=== PATIENT | female | born 1965 | race Caucasian/White ===

== ENCOUNTER → 2017-11-30 | Outpatient (CLI) | payer OTHER ==
[~2017-11-30] MED LIST: CALCIUM 600 +1 EAC1 PO; CENTRUM SILVER1 EAC2 PO; COREG6.25 MG PO; FLEXERIL PO; HARD NAILS2500 MCG PO; IBUPROFEN 800800 MG PO; NORCO 7.5-3251 EACH PO; PREDNISONE 10 M10 MG PO; ROBAXIN 750 MG750 MG PO; TURMERIC500 M1 PO; VITAMINC500 PO
[2017-11-30 10:05] LABS: ABSOLUTE BASOPHILS 0.1 thou/uL (0.0-0.2); ABSOLUTE EOSINOPHILS 0.1 thou/uL (0.0-0.7); ABSOLUTE LYMPHOCYTES 1.2 thou/uL (0.8-5.3); ABSOLUTE MONOCYTES 0.5 thou/uL (0.0-1.2); ABSOLUTE NEUTROPHILS 2.3 thou/uL (1.6-8.1); BASOPHILS 1.2 %; EOSINOPHILS 3.3 %; HEMATOCRIT 43.6 % (37.0-47.0); HEMOGLOBIN 15.2 gm/dL (12.0-15.0); LYMPHOCYTES 29.5 %; MCH 32.9 pg (26.0-34.0); MCHC 34.8 g/dL (28.0-37.0); MCV 94.6 fL (80.0-100.0); MONOCYTES 10.9 %; MPV 7.2 fl. (7.2-11.1); NUCLEATED RBCS 0 /100WBC; PLATELET COUNT* 210 thou/uL (150-400); POLYS 55.1 %; WBC 4.2 thou/uL (4.0-11.0)
[2017-11-30 10:17] LABS: ALBUMIN 3.9 g/dL (3.4-5.0); CALCIUM 9.6 mg/dL (8.5-10.1); POTASSIUM 4.4 mmol/L (3.5-5.1); TOTAL BILIRUBIN 0.4 mg/dL (<0.1-1.0); TOTAL PROTEIN 7.3 g/dL (6.4-8.2)
== END ==
LOC: M.LAB 11-22 10:00 → M.RAD 11-22 10:40 → M.LAB 09:40
PROVIDERS: Radiology Radiation Oncology
DX: J98.4 Other disorders of lung (principal); Z85.3 Personal history of malignant neoplasm of breast; Z98.890 Other specified postprocedural states

== ENCOUNTER → 2017-12-07 | Outpatient (CLI) | payer OTHER ==
--- NOTE | 2017-12-19 10:34 | ONC ---
[address] [address] RADIATION ONCOLOGY NOTE Name: QIELVIS Isidoro Room: [facility]#: [id number] Admission: 12/07/17 Attend Phys: Basil Shepard MD Discharge: Date of : 61 Report #: [id number] THIS REPORT FOR: //name// CC: Basil Villagran DO DATE OF SERVICE: 12/07/2017 RADIATION ONCOLOGY FOLLOWUP NOTE REFERRING PHYSICIANS: Include Jaime Barton DO; Cleveland Masters MD as well as Ady Mir DO [facility] phone is [phone]. PRIMARY SITE AND HISTOPATHOLOGY: The patient underwent radiation therapy as part of breast conservation therapy for a stage IIB, T2N1M0 left breast cancer. She completed radiation therapy as part of breast conservation therapy on 01/12/2017. INTERVAL NOTE: The patient denied having any discharge from the right nipple. She denied having any discharge from the left nipple. She denied having any suspicious palpable masses involving the left breast. She denied having any suspicious palpable masses involving the right breast. MEDICATIONS: She is taking no medications. SOCIAL HISTORY: Cigarettes -- the patient does not smoke cigarettes. REVIEW OF SYSTEMS: RESPIRATORY: Breathing was stable. She was not short of breath during appointment. MUSCULOSKELETAL: Range of motion in her extremities was normal. PHYSICAL EXAMINATION: With my nurse, Rosie Lozano, present: VITAL SIGNS: The patient weighed 177.2 pounds on 12/07/2017. The patient was 172 pounds 9.6 ounces on 02/19/2017. On 12/07/2017, blood pressure was 133/88, pulse 70, respirations 20. LYMPH NODES: She had no palpable cervical, supraclavicular or axillary lymphadenopathy. HEART: Had a regular rate and rhythm without murmur. LUNGS: were clear to auscultation. BREASTS: Right breast had no suspicious palpable masses. Left breast had no suspicious palpable masses. ABDOMEN: Not tender. Spleen was not palpable. Liver [place] [address] RADIATION ONCOLOGY NOTE Name: ELVIS BUSBY Room: [facility]#: [id number] Admission: 12/07/17 Attend Phys: Basil Shepard MD Discharge: Date of : 61 Report #: [id number] EXTREMITIES: Had no clubbing, cyanosis or edema. LABORATORY DATA: From 11/30/2017, sodium was 141, potassium 4.4, BUN was 18, creatinine was 1.0, SGOT was 101 and SGPT was 124. RADIOLOGIC DATA: She had a bilateral mammogram on 11/30/2017, which showed benign findings. They recommended a bilateral screening mammogram in May 2018, and she had a chest CT on 11/30/2017, which showed scarring of the left lung apex, which was less prominent, the radiology report recommended a followup CT scan in May 2018. ASSESSMENT AND PLAN: 1. History of left breast cancer - there is no evidence of breast cancer at this time. The patient continues to follow up with her medical oncologist, Dr. Masters. She has an appointment with Dr. Masters on 12/17/2017 and a requisition was written for a complete metabolic panel in April 2018 or May [address] with contrast in May 2018, and the patient was asked to schedule a followup appointment to see me after the chest CT. 2. Scar tissue in the lung that is probably secondary to radiation therapy in that area- A followup CT scan will be ordered in May 2018 as well as a complete metabolic panel. The CT scan will be ordered to confirm stability and make sure that the scan is consistent with scar tissue and the patient was asked to schedule a follow up appointment with me after the CT scan is complete. 3. Elevated liver enzymes- The patient had seen Dr. Masters on 10/05/2017 and in her note, she mentioned that the patient had a fatty liver and that she was drinking about 7 alcohol-containing drinks per week, so that is probably the reason her liver enzymes tend to be elevated. The patient was encouraged to decrease her alcohol intake to help normalize these liver enzymes. Thank you for allowing me to participate in the care of this patient. <ELECTRONICALLY SIGNED> By: Basil Shepard MD 12/19/17 1034 [id number] [id number] Shepard MD /nt
== END ==
LOC: M.RTH 11-30 10:30
DX: Z08 Encounter for follow-up examination after completed treatment for malignant neoplasm (principal); J98.4 Other disorders of lung; R94.5 Abnormal results of liver function studies; Z85.3 Personal history of malignant neoplasm of breast

== ENCOUNTER → 2018-04-26 | Outpatient (CLI) | payer OTHER | LOC: M.ULTRA 08:00 | DX: R94.5 Abnormal results of liver function studies (principal); C50.412 Malignant neoplasm of upper-outer quadrant of left female breast; Z85.3 Personal history of malignant neoplasm of breast; Z88.0 Allergy status to penicillin ==

== ENCOUNTER → 2018-05-30 | Outpatient (CLI) | payer OTHER ==
[2018-05-30 10:46] LABS: ALBUMIN 4.1 g/dL (3.4-5.0); CALCIUM 9.5 mg/dL (8.5-10.1); POTASSIUM 4.2 mmol/L (3.5-5.1); TOTAL BILIRUBIN 0.7 mg/dL (<0.1-1.0); TOTAL PROTEIN 7.8 g/dL (6.4-8.2)
== END ==
LOC: M.CT 09:51 → M.LAB 10:00 → M.CT 11:00
PROVIDERS: Radiology Radiation Oncology
DX: C50.912 Malignant neoplasm of unspecified site of left female breast (principal); J98.4 Other disorders of lung

== ENCOUNTER → 2018-05-31 | Outpatient (CLI) | payer OTHER ==
--- NOTE | 2018-06-09 10:28 | ONC ---
[place] [address] RADIATION ONCOLOGY NOTE Name: ELVIS BUSBY Room: [facility]#: [id number] Admission: 05/31/18 Attend Phys: Basil Shepard MD Discharge: Date of : 61 Report #: [id number] THIS REPORT FOR: //name// CC: Basil Mir DATE OF SERVICE: 05/31/2018 [facility] phone: [phone] REFERRING PHYSICIANS: Dr. Barton, Cleveland Masters MD and Ady Mir DO. PRIMARY SITE AND HISTOPATHOLOGY: The patient completed radiation therapy as part of breast-conservation therapy for a stage IIB, T2N1M0, left breast cancer. She completed radiation treatments on 01/12/2017. INTERVAL NOTE: The patient denied having any discharge from the right nipple. She denied having any discharge from the left nipple. She did not have any suspicious palpable masses involving the left breast. She did not have any suspicious palpable masses involving the right breast. She indicates she saw the roll edge machine operator with regards to her elevated liver enzymes and they did an ultrasound, which did not reveal any lesions except that the patient does have a fatty liver and they encouraged her to change some supplements she was taking and they also suggested that she decrease her ethanol intake. MEDICATIONS: Carvedilol and losartan. SOCIAL HISTORY: Cigarettes: The patient does not smoke cigarettes. Ethanol: the patient did take alcohol containing drinks almost daily, which included drinks such as beer. REVIEW OF SYSTEMS: RESPIRATORY: The patient was not short of breath during her appointment. MUSCULOSKELETAL: She had good range of motion in her upper extremities. PHYSICAL EXAMINATION: With my nurse Rosie Lozano present: VITAL SIGNS: Weight was 172 pounds on 05/31/2018. She was 177.2 pounds on 12/26/2017 and on 05/31/2018, blood pressure was 133/91, pulse 63, respirations 20 and oxygen saturation was 97%. LYMPH NODES: She had no palpable cervical or supraclavicular lymphadenopathy. HEART: Had a regular rate and rhythm without murmur. LUNGS: were clear to auscultation. BREASTS: Right breast had no suspicious palpable masses. Left breast had no suspicious palpable masses. ABDOMEN: Not tender. Spleen was not palpable. Liver was at the costal margin. EXTREMITIES: Had no clubbing, [place] [address] RADIATION ONCOLOGY NOTE Name: ELVIS BUSBY Room: [facility]#: [id number] Admission: 05/31/18 Attend Phys: Basil Shepard MD Discharge: Date of : 61 Report #: [id number] LABORATORY DATA: From 05/30/2018, sodium 140, potassium 4.2, BUN 16, creatinine 1.0, AST was elevated at 126 and ALT was 159. RADIOLOGIC DATA: She had a diagnostic bilateral mammogram and unilateral ultrasound and it showed post-treatment changes probably benign findings. There appeared to be a finding on her ultrasound consistent with a cyst and they recommended a 6-month followup right breast ultrasound. She also had an ultrasound of her abdomen done on 04/26/2018 and that revealed findings consistent with fatty infiltration of the liver. Otherwise, it was unremarkable. She had a chest CT on 05/30/2018, which showed stable scarring in the left lung. ASSESSMENT AND PLAN: 1. History of left breast cancer- There is no evidence of breast cancer at this time. The patient has an appointment with her medical oncologist, Dr. Masters, on 06/18/2018 and we also ordered lab work at that time. A right breast ultrasound and a complete metabolic panel were ordered in 11/2018. She was asked to schedule a follow up appointment to see me afterwards. 2. Elevated liver enzymes- are probably due to the fatty liver and she is cutting back her alcohol intake to help try to stabilize her liver enzymes. 3. Hypertension- The patient takes losartan and that is managed by her referring physicians. Thank you for allowing me to participate in the care of this patient. <ELECTRONICALLY SIGNED> By: Basil Shepard MD 06/09/18 1028 1231 [id number] Shepard MD /nt
== END ==
LOC: M.RTH 03:38
DX: Z08 Encounter for follow-up examination after completed treatment for malignant neoplasm (principal); C50.912 Malignant neoplasm of unspecified site of left female breast; N63.21 Unspecified lump in the left breast, upper outer quadrant; N63.10 Unspecified lump in the right breast, unspecified quadrant; I10 Essential (primary) hypertension; R79.89 Other specified abnormal findings of blood chemistry; Z85.3 Personal history of malignant neoplasm of breast

== ENCOUNTER → 2018-07-19 | Outpatient (CLI) | payer OTHER | LOC: M.MRI 16:20 | DX: M54.9 Dorsalgia, unspecified (principal); M47.897 Other spondylosis, lumbosacral region ==

== ENCOUNTER → 2019-01-10 | Outpatient (CLI) | payer BC ==
--- NOTE | ~2019-01-10 | ONC ---
[address] [address] RADIATION ONCOLOGY NOTE Name: QIELVIS EMILE Room: [facility].#: [id number] Admission: 01/10/19 Attend Phys: Basil Shepard MD Discharge: Date of : 61 Report #: [id number] THIS REPORT FOR: //name// CC: Basil Barton DATE OF SERVICE: 01/10/2019 REFERRING PHYSICIANS: Include Dr. Jaime Barton. Dr. Cleveland Masters. Dr. Ady Mir. [facility] phone is [phone]. PRIMARY SITE AND HISTOPATHOLOGY: The patient completed radiation therapy as part of breast conservation therapy for stage 2b T2 N1 M0 left breast cancer. She completed radiation treatments on 01/12/2017. INTERVAL NOTE: The patient denied having any discharge from the right nipple. The patient denied having any discharge from the left nipple. The patient denied having any suspicious palpable masses involving the right breast. The patient denied having any suspicious palpable masses involving the left breast. The patient used to have elevated liver enzymes, which may have been due to ethanol intake in the past. They appear to have normalized on her recent labs in 11/2018. MEDICATIONS: Carvedilol and losartan. SOCIAL HISTORY: Cigarettes: The patient does not smoke cigarettes. 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 REVIEW OF SYSTEMS: RESPIRATORY: The patient was not short of breath during her appointment. MUSCULOSKELETAL: She had normal range of motion of her upper extremities. PHYSICAL EXAMINATION: With my nurse, Rosie Lozano, present: VITAL SIGNS: Weight was 153.2 pounds. She was 192 pounds on 05/31/2018. She is trying to lose weight and is very active at her new job and on 01/10/2019, blood pressure is 133/84, pulse 76, respirations 16, oxygen saturation was 96%. LYMPH NODES: She had no palpable cervical or supraclavicular lymphadenopathy. HEART: Had a regular rate and rhythm without murmur. LUNGS: Clear to auscultation. BREASTS: Right breast had no suspicious palpable masses. Left breast had no suspicious palpable masses. ABDOMEN: Nontender. Spleen was not palpable. Liver [place] [address] RADIATION ONCOLOGY NOTE Name: ELVIS BUSBY EMILE Room: [facility]#: [id number] Admission: 01/10/19 Attend Phys: Basil Shepard MD Discharge: Date of : 61 Report #: [id number] LABORATORY DATA: From 11/29/2018. Sodium was 139, potassium 3.9, BUN 16, creatinine 0.8. RADIOLOGIC DATA: She had a right breast ultrasound on 11/29/2018 which revealed a benign breast cyst involving the right breast and her previous bilateral mammograms 05/30/2018 which basically noted a cystic area. She also had a CA27-29 level on 07/05/2018, which is less than 12. ASSESSMENT AND PLAN: 1. History of left breast cancer. There is no evidence of breast cancer at this time. The patient has an appointment with her medical oncologist, Dr. Masters, on 03/21/2019. The patient was given a requisition for bilateral mammogram in 05/2019 or 06/2019. The patient was asked to schedule a followup appointment to see me afterwards. 2. Hypertension. The patient takes losartan and that is managed by her referring physicians. 3. History of elevated liver enzymes. The patient's liver enzymes are within normal limits on 11/29/2018 with the AST being 33, sodium 139, potassium 3.9, BUN 16, creatinine 0.8 because of decrease in ethanol intake. Thank you for allowing me to participate in the care of this patient. By: [id number] Shepard MD /kaylah
== END ==
LOC: M.RTH 12-20 11:30
DX: Z08 Encounter for follow-up examination after completed treatment for malignant neoplasm (principal); I10 Essential (primary) hypertension; Z85.3 Personal history of malignant neoplasm of breast; Z79.899 Other long term (current) drug therapy

== ENCOUNTER → 2019-07-11 | Outpatient (CLI) | payer BC | LOC: M.RAD 12:53 | DX: R92.8 Other abnormal and inconclusive findings on diagnostic imaging of breast (principal); Z85.3 Personal history of malignant neoplasm of breast ==

== ENCOUNTER → 2019-08-22 | Outpatient (CLI) | payer BC ==
--- NOTE | ~2019-08-22 | ONC ---
[address] [address] RADIATION ONCOLOGY NOTE Name: QIELVIS EMILE Room: [facility].#: [id number] Admission: 08/22/19 Attend Phys: Basil Shepard MD Discharge: Date of : 61 Report #: [id number] THIS REPORT FOR: //name// CC: Basil Barton DATE OF SERVICE: 08/22/2019 REFERRING PHYSICIANS: Dr. Jaime Barton, Dr. Cleveland Masters and Dr. Ady Mir. [facility] phone is [phone]. PRIMARY SITE AND HISTOPATHOLOGY: The patient completed radiation therapy as part of breast conservation therapy for stage [id number] left breast cancer. She completed radiation treatments on 01/12/2007. INTERVAL NOTE: The patient denied having any discharge from the right nipple. She denied having any discharge from the left nipple. She denied having any suspicious palpable masses involving the right breast. She denied having any suspicious palpable masses involving the left breast. 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 She does have an appointment with her medical oncologist, Dr. Masters, on 09/19/2019. MEDICATIONS: Include carvedilol and losartan. SOCIAL HISTORY: Cigarettes: The patient does not smoke cigarettes. Ethanol: The patient used to drink alcohol on a daily basis and she stopped doing that earlier in 2018. 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 REVIEW OF SYSTEMS: RESPIRATORY: The patient was not short of breath during her appointment. MUSCULOSKELETAL: She had normal range of motion of her upper extremities. PHYSICAL EXAMINATION: With my nurse, Rosie Lozano, present: VITAL SIGNS: The patient weighed 153 pounds on 08/22/2019, 153.2 pounds on ____. On 08/22/2019, blood pressure is 139/88, pulse 63, respirations 18, oxygen saturation 98%. LYMPH NODES: She had no palpable cervical or supraclavicular or axillary lymphadenopathy. HEART: Had a regular rate and rhythm without murmur. LUNGS: Clear to auscultation. BREASTS: Right breast had no suspicious palpable masses. Left breast had no suspicious palpable masses. ABDOMEN: Nontender. Spleen was not palpable. Liver was at the costal margin. RADIOLOGIC DATA: The patient had a bilateral mammogram on 07/11/2019, [place] [address] RADIATION ONCOLOGY NOTE Name: ELVIS BUSBY Room: [facility]#: [id number] Admission: 08/22/19 Attend Phys: Basil Shepard MD Discharge: Date of : 61 Report #: [id number] showed evidence of malignancy and routine annual mammography was recommended. ASSESSMENT AND PLAN: 1. History of left breast cancer. There is no evidence of breast cancer. The patient is scheduled to see her medical oncologist, Dr. Masters, on 09/19/2019. The patient was given a requisition for a bilateral mammogram in about 1 year and the patient was asked to schedule a followup appointment to see me after that mammogram is done. 2. Hypertension. The patient takes losartan that is managed by her referring physicians. 3. Arthritis -- the patient said she has intermittent arthritic pains in her right shoulder and her lower back around the lumbar spine. She was offered a referral to the oncology rehabilitation physician, Dr. Veronica Hargrove. The patient did not feel that it was symptomatic enough to warrant that referral. So, she declined that referral to Dr. Hargrove. Thank you for allowing me to participate in the care of this patient. By: [id number] Shepard MD /kaylah
== END ==
LOC: M.RTH 04:59
DX: Z09 Encounter for follow-up examination after completed treatment for conditions other than malignant neoplasm (principal); I10 Essential (primary) hypertension; M19.90 Unspecified osteoarthritis, unspecified site; Z85.3 Personal history of malignant neoplasm of breast

== ENCOUNTER → 2020-07-29 | Outpatient (CLI) | payer OTHER | LOC: M.RAD 13:22 | PROVIDERS: ATTEND Internal Medicine Hematology & Oncology | DX: Z12.31 Encounter for screening mammogram for malignant neoplasm of breast (principal) ==

== ENCOUNTER → 2021-08-08 | Outpatient (CLI) | payer BC | LOC: M.RAD 12:16 | PROVIDERS: ATTEND Student in an Organized Health Care Education/Training Program | DX: Z12.31 Encounter for screening mammogram for malignant neoplasm of breast (principal); N60.01 Solitary cyst of right breast ==

== ENCOUNTER → 2021-08-15 | Outpatient (CLI) | payer BC ==
--- NOTE | 2021-08-18 10:12 | PATH ---
[address] [address] PATHOLOGY RPT PROCEDURE Name: BRITT URIBE Room: [facility].[place].#: [id number] Admission: 08/15/21 Date of : 61 Discharge: Report #: [id number] Path Case #: [id number] [facility] Accession Number: [id number] . 01 Material submitted: . breast - RIGHT BREAST 400 2CM FN. Modifiers: right, 4:00, 2CM FN . 01 Clinical history: . 0.64 X 0.75 X 0.49CM US/ RT BREAST MAMMOTOME BX/ NODULE 3OCLOCK COLLECTED 1047AM FORMALIN 1101AM . 02 Diagnosis: Right breast, 4:00, 2 cm from nipple, image guided core biopsies: - Benign breast tissue with cystic apocrine change, minute ductal papilloma(s) and usual ductal epithelial hyperplasia, negative for atypia. See comment. LBQ 08/16/2021 1237 Local . 02 Comment: A vaguely nodular focus of cystic apocrine change spanning 8 mm is seen in A1 and ductal papilloma(s) spanning less than 1 mm is seen in A1 and A3. Reviewed with Dr. Bert Leary on 08/17/2021 who agrees with the diagnosis. (AMANDA/db; 08/16/2021) . 02 Electronically signed: . Ki Bowser MD, Pathologist NPI- [id number] . 01 Gross description: . The specimen is received in formalin, labeled "Britt Uribe, right breast 400 2 cmfn" and consists of multiple garland hemorrhagic cylindrical tissues ranging in length from 0.8 cm to 2.0 cm and ranging in diameter from 0.4 cm to 1.0 cm. The cold ischemic time is 14 minutes. The total time in formalin is 9 hours.(NUNAKAUYARMIUT; 08/15/2021) DKA/DKA 08/15/2021 1719 Local . 02 Pathologist provided ICD-10: N62, D24.1 . 02 CPT . 388338 Specimen Comment: A courtesy copy of this report has been sent to [phone] Specimen Comment: [id number], Specimen Comment: Report sent to , DR CENTENO / [place] [address] PATHOLOGY RPT PROCEDURE Name: BRITT URIBE EMILE Room: [facility].#: [id number] Admission: 08/15/21 Date of : 61 Discharge: Report #: [id number] Path Case #: [id number] Specimen Comment: A duplicate report has been generated due to demographic updates. Performed at: 01 [facility] [place] [address] [place] [address] [address], [place], [place] [id number] MD Bert Leary MD Phone: [phone] Performed at: [address] [facility] [address] [place] [id number] MD Ki Bowser MD Phone: [phone]
== END ==
LOC: M.ULTRA 08:14
PROVIDERS: ATTEND Student in an Organized Health Care Education/Training Program
DX: D24.1 Benign neoplasm of right breast (principal); N62 Hypertrophy of breast; N60.81 Other benign mammary dysplasias of right breast; R92.1 Mammographic calcification found on diagnostic imaging of breast; Z79.899 Other long term (current) drug therapy; Z88.0 Allergy status to penicillin